=== PATIENT | male | born 2000 | race African-American/Black ===

== ENCOUNTER 2021-10-12 14:38 | Emergency (ER) | payer OTHER ==
[~2021-10-12] VITALS: Ht 175 cm; Wt 78.7 kg
[2021-10-12] MEDS ORDERED: IBUPROFEN 600 MG (MOTRIN) TAB PO ONE (15:45)
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
[2021-10-12 16:50] VITALS: BP 127/81
== END 2021-10-12 16:51 | disposition home or self-care (01) ==
LOC: ER FS 14:41
DX: S43.401A Unspecified sprain of right shoulder joint, initial encounter (principal); S23.3XXA Sprain of ligaments of thoracic spine, initial encounter; Z72.0 Tobacco use; V89.2XXA Person injured in unspecified motor-vehicle accident, traffic, initial encounter
CPT/HCPCS: 71045; 73030